=== PATIENT | female | born 1965 | race Caucasian/White ===

== ENCOUNTER 2017-04-15 11:06 | Day surgery (SDC) | payer SELFPAY ==
[2017-04-15] MEDS ORDERED: D5 LR 1000 ML 1,000 ML IV ONE (11:21)
[2017-04-15] MEDS ORDERED: DIPRIVAN VIAL 20 ML ONE ×2 (12:44→13:03)
[2017-04-15 14:25] LABS: CREATININE 0.67 mg/dL (0.55-1.02)
[2017-04-15 14:58] VITALS: BP 100/60
== END 2017-04-15 14:00 | disposition home or self-care (01) ==
LOC: SURG1 11:06
PROVIDERS: ATTEND Internal Medicine Gastroenterology
PROC: 0DBP8ZX Excision of Rectum, Via Natural or Artificial Opening Endoscopic, Diagnostic (ICD-10-PCS; principal; 2017-04-15 16:15)
PROC: 0DBN8ZX Excision of Sigmoid Colon, Via Natural or Artificial Opening Endoscopic, Diagnostic (ICD-10-PCS; principal; 2017-04-15 16:15)
PROC: 0DJD8ZZ Inspection of Lower Intestinal Tract, Via Natural or Artificial Opening Endoscopic (ICD-10-PCS; principal; 2017-04-15 16:15)
PROC: 0DB88ZX Excision of Small Intestine, Via Natural or Artificial Opening Endoscopic, Diagnostic (ICD-10-PCS; principal; 2017-04-15 16:15)
PROC: 0DB68ZX Excision of Stomach, Via Natural or Artificial Opening Endoscopic, Diagnostic (ICD-10-PCS; principal; 2017-04-15 16:15)
PROC: 0DB58ZX Excision of Esophagus, Via Natural or Artificial Opening Endoscopic, Diagnostic (ICD-10-PCS; principal; 2017-04-15 16:15)
PROC: 0DBL8ZX Excision of Transverse Colon, Via Natural or Artificial Opening Endoscopic, Diagnostic (ICD-10-PCS; principal; 2017-04-15 16:15)
PROC: 0DJ08ZZ Inspection of Upper Intestinal Tract, Via Natural or Artificial Opening Endoscopic (ICD-10-PCS; principal; 2017-04-15 16:15)
PROC: 3E0H8GC Introduction of Other Therapeutic Substance into Lower GI, Via Natural or Artificial Opening Endoscopic (ICD-10-PCS; principal; 2017-04-15 16:15)
DX: Z12.11 Encounter for screening for malignant neoplasm of colon (principal); R11.2 Nausea with vomiting, unspecified; R10.13 Epigastric pain; K21.9 Gastro-esophageal reflux disease without esophagitis; D50.8 Other iron deficiency anemias; R19.4 Change in bowel habit; Z80.0 Family history of malignant neoplasm of digestive organs; K20.8 Other esophagitis; K29.60 Other gastritis without bleeding; C18.4 Malignant neoplasm of transverse colon; D12.8 Benign neoplasm of rectum; K57.30 Diverticulosis of large intestine without perforation or abscess without bleeding; K63.5 Polyp of colon; K64.0 First degree hemorrhoids
CPT/HCPCS: 36415; 82565; 84520; A4222; A4217; J3490; J7120

== ENCOUNTER → 2017-04-21 | Outpatient (CLI) | payer SELFPAY ==
[2017-04-15 11:26] VITALS: BP 112/59
[~2017-04-21] MED LIST: NS 100 ML IV 100 ML IV ONE
--- NOTE | 2017-04-21 10:30 | CT ---
HISTORY: Transverse colon mass Study: CT abdomen pelvis with contrast Comparison: None Technique: Axial post-contrast images with coronal and sagittal reformats. Dose reduction procedures were use with MA/kv adjusted for body size. Findings: The lung bases are clear. The liver, spleen, adrenal glands, and pancreas are within normal limits. No opaque stones are visible within the gallbladder. The kidneys are unobstructed and without stones or masses. No ureteral calculi are identified. There is a large mass involving the proximal and mid transverse colon. The mass measures approximately 8.2 by 6.2 centimeters and causes significant com promise of the lumen. This represents the yesi malignancy described in the history. The remainder o f the colon appears within normal limits. No significant retroperitoneal lymphadenopathy is identifi ed. Multiple lymph nodes are present within the omentum each measuring approximately 7 [address]imeters. PET-CT would be helpful in determining if a contained metastatic disease. There is a larger node yahir suring 2.7 x 2.1 centimeters best visualized on series 4 axial image 40 and series 8 coronal image 2 1. The no demonstrates central lucency possibly necrosis. Metastasis cannot be excluded. Also best v isualized on axial series 4, image 43 and coronal series 8, image 16 is a 4.3 by 3 centimeter mass d emonstrating central lucency possibly representing metastasis or metastatic adenopathy. Examination of the pelvis demonstrated no evidence for pelvic masses, pelvic fluid, or pelvic lymphadenopathy. T he uterus is enlarged and contains at least 1 3.7 x 3.6 centimeter fibroid. No lytic or blastic skel etal lesions are identified. IMPRESSION: 8.2 x 6.2 centimeter proximal transverse colon mass representing a malignancy described in the histo ry Adjacent masses in the mesenteries and me is a yesi measuring 2.7 x 2.1 centimeters and 4.3 by 3 ce ntimeters likely representing metastatic disease or metastatic adenopathy. No evidence for hepatic metastatic disease 3.7 x 3.6 centimeter fibroid Reported By:
== END ==
LOC: RAD 09:11
PROVIDERS: ATTEND Internal Medicine Gastroenterology
DX: Z12.11 Encounter for screening for malignant neoplasm of colon (principal); D50.8 Other iron deficiency anemias; K21.9 Gastro-esophageal reflux disease without esophagitis; R11.2 Nausea with vomiting, unspecified; Z80.0 Family history of malignant neoplasm of digestive organs
CPT/HCPCS: 74177; A4222